=== PATIENT | female | born 1995 | race Caucasian/White ===

== ENCOUNTER 2019-10-13 14:42 | Emergency (ER) | payer OTHER ==
[2019-10-13 14:46] VITALS: BP 128/79; PULSE 106; TEMP 98
--- NOTE | 2019-10-13 15:29 | ED ---
ENT HPI - General Chief complaint: Dental/Oral Stated complaint: Abcess Time Seen by Provider: 10/13/19 14:59 Source: patient Mode of arrival: ambulatory Limitations: no limitations - History of Present Illness Initial comments: Patient is a 24-year-old female presenting to emergency Department with complaints of a dental abscess for the past week. Patient states she is having mild pain but is noticing increase in her swelling. Patient has not been to a dentist yet. Patient denies fever, chills, nausea, vomiting. She has no other complaints at this time. Patient denies . Upon arrival to ER, her vital signs are stable. - Related Data Previous Rx's Medication Instructions Recorded Penicillin V Potassium [Pen Vee K] 10 ml PO QID 7 Days #280 ml 10/13/19 Allergies Allergy/AdvReac Type Severity Reaction Status Date / Time No Known Allergies Allergy Verified 10/13/19 14:46 Review of Systems ROS Statement: Those systems with pertinent positive or pertinent negative responses have been documented in the HPI. ROS Other: All systems not noted in ROS Statement are negative. Past Medical History Past Medical History: No Reported History History of Any Multi-Drug Resistant Organisms: None Reported Past Surgical History: No Surgical Hx Reported Past Psychological History: Anxiety, Depression Smoking Status: Current every day smoker Past Alcohol Use History: None Reported Past Drug Use History: Marijuana General Exam - General Exam Comments Initial Comments: GENERAL: Well-appearing, well-nourished and in no acute distress. HEAD: Atraumatic, normocephalic. EYES: Pupils equal round and reactive to light, extraocular movements intact, sclera anicteric, conjunctiva are normal. ENT: TMs normal, nares patent, oropharynx clear without exudates. Moist mucous membranes. Patient has a broken tooth on the lower left side that has an associated abscess on the lower outter gum line. Abscess was drained with some blood in yellow fluid draining. Patient has very mild swelling of the lower left dry area. No overlying erythema or pain. NECK: Normal range of motion, supple without lymphadenopathy or JVD. LUNGS: Breath sounds clear to auscultation bilaterally and equal. No wheezes rales or rhonchi. HEART: Regular rate and rhythm without murmurs, rubs or gallops. ABDOMEN: Soft, nontender, normoactive bowel sounds. No guarding, no rebound. No masses appreciated. EXTREMITIES: Normal range of motion, no pitting or edema. No clubbing or cyanosis. NEUROLOGICAL: Normal speech, normal gait. PSYCH: Normal mood, normal affect. SKIN: Warm, Dry, normal turgor, no rashes or lesions noted. Limitations: no limitations Course Vital Signs 10/13/19 10/13/19 14:44 15:33 Temperature 98.0 F Pulse Rate 106 H Respiratory 18 20 Rate Blood Pressure 128/79 O2 Sat by Pulse 100 Oximetry Medical Decision Making - Medical Decision Making Patient is a 24-year-old female presenting with a dental abscess in the lower left side. Vital signs are stable. Abscess was drained with a 27-gauge needle. Blood and yellow fluid were draining. Patient will be started on antibiotics and will follow-up with dentist STIVEN. She can also do salt water gargles. She is in agreement with this plan of care. Return parameters were discussed with the patient she verbalized understanding. Disposition Clinical Impression: Dental abscess, Fracture of tooth Disposition: HOME SELF-CARE Condition: Stable Instructions (If sedation given, give patient instructions): Dental Abscess (ED) Additional Instructions: Please return to the Emergency Department if symptoms worsen or any other concerns. Take antibiotic as prescribed. Take Motrin for pain relief and swelling. Follow-up with dentist STIVEN. Prescriptions: Penicillin V Potassium [Pen Vee K] 10 ml PO QID 7 Days #280 ml Is patient prescribed a controlled substance at d/c from ED?: No Referrals: Suresh Cuadra DO [Primary Care Provider] - 1-2 days
[2019-10-13 15:35] VITALS: RESP 20
== END 2019-10-13 15:39 | disposition home or self-care (01) ==
LOC: EC 14:42
DX: K04.7 Periapical abscess without sinus (principal); S02.5XXA Fracture of tooth (traumatic), initial encounter for closed fracture; F17.200 Nicotine dependence, unspecified, uncomplicated; X58.XXXA Exposure to other specified factors, initial encounter
CPT/HCPCS: 41800; 99283

== ENCOUNTER 2025-04-14 06:00 | Inpatient (IN) | payer OTHER ==
[2025-04-14] MEDS ORDERED: LIDOCAINE 0.5% (PF) 5 MG/ML (50 ML SDV) SQ PRN (06:49)
[2025-04-14] MEDS ORDERED: METHYLERGONOVINE 0.2 MG/ML 1 ML AMP IM PRN (06:49)
[2025-04-14] MEDS ORDERED: OXYTOCIN 10 UNIT/ML 1 ML VIAL IM PRN (06:49)
[2025-04-14] MEDS ORDERED: TERBUTALINE 1 MG/ML VIAL SQ PRN (06:49)
[2025-04-14] MEDS ORDERED: TRANEXAMIC 1,000 MG/100ML-NACL 1,000 MG in EMPTY BAG 1 BAG IV PRN (06:49)
[2025-04-14] MEDS ORDERED: CARBOPROST TROMETHAMINE 250 MCG/ML 1 ML AMP IM PRN (06:49)
[2025-04-14] MEDS: LACTATED RINGERS 1,000 ML IV SCH (07:07)
[2025-04-14] MEDS: OXYTOCIN 30 UNITS/500 ML NS 30 UNIT in SALINE 1 500ML.BAG IV SCH (07:10)
[2025-04-14 07:42] LABS: Basophils # (A) 0.09 10*3/uL (0.00-0.10); Basophils % (A) 0.9 %; Eosinophils # (A) 0.21 10*3/uL (0.04-0.35); Eosinophils % (A) 2.0 %; HCT 32.9 % (37.2-46.3); HGB 10.9 g/dL (12.0-15.0); Lymphocytes # (A) 1.93 10*3/uL (0.90-5.00); Lymphocytes % (A) 18.8 %; MCH 27.7 pg (27.0-32.0); MCHC 33.1 g/dL (32.0-37.0); MCV 83.7 fL (80.0-97.0); Monocytes # (A) 0.62 10*3/uL (0.20-1.00); Monocytes % (A) 6.0 %; Neutrophils # (A) 7.38 10*3/uL (1.80-7.70); Neutrophils % (A) 71.9 %; Platelet Count 417 10*3/uL (140-440); RBC 3.93 10*6/uL (4.10-5.20); RDW 13.5 % (11.5-14.5); WBC 10.27 10*3/uL (4.50-10.00)
[2025-04-14 08:23] VITALS: RESP 16
--- NOTE | 2025-04-14 09:00 | P.HPOB ---
History of Present Illness H&P Date: 04/14/25 Chief Complaint: 39-0/7 weeks, elective induction The patient is a 29-year-old 3 para 2-0-0-2 admitted at 39-0/7 weeks as established by a 24-week ultrasound. She is admitted for elective induction of labor with all signs reassuring, category 1 heart rate tracing. Her has been uncomplicated though she is Rh- and received RhoGAM at 28 weeks. Group B strep status is negative. Obstetrical history: 3 para 2-0-0-2 with 2 term vaginal deliveries without complications. Current statistics are listed in history of present illness. EDC of 04/21/2025 was established by her 24-week ultrasound. Laboratory workup demonstrates a blood type B- with a negative antibody screen. Rubella status is immune. The remainder of the laboratory workup was within normal limits. 1 hour Glucola was normal and group B strep status is negative. She did have an initial positive chlamydia screen which was treated and cured. Gynecologic history: Unremarkable though she did have a history of chlamydia at the onset of which was treated and cured. Review of Systems Review of systems is confined to history of present illness. Past Medical History Past Medical History: No Reported History History of Any Multi-Drug Resistant Organisms: None Reported Past Surgical History: No Surgical Hx Reported Past Anesthesia/Blood Transfusion Reactions: No Reported Reaction Past Psychological History: Anxiety, Depression Smoking Status: Current every day smoker Past Alcohol Use History: None Reported Past Drug Use History: Marijuana Medications and Allergies Allergies Allergy/AdvReac Type Severity Reaction Status Date / Time codeine Allergy Rash/Hives Verified 04/14/25 06:47 Exam Vital Signs Resp Pulse Ox 04/14/25 08:20 16 100 Intake and Output 04/13/25 04/14/25 04/14/25 22:59 06:59 14:59 Other: Weight 63.503 kg 63.503 kg In general, this is a well-developed, well-nourished white female in no acute distress. Her heart has a regular rhythm and rate without murmur. Her lungs are clear to auscultation bilaterally in all suggs. Her abdomen is gravid, nondistended, has normal active bowel sounds, soft, nontender, and without any palpable masses aside from the uterine fundus. Her extremities are without any cyanosis, clubbing, or edema and are nontender to palpation bilaterally. Digital cervical examination demonstrates her cervix to be 3 cm dilated, 50 to 60% effaced, with the vertex and presentation at -2 station. Artificial rupture of membranes is carried out demonstrating clear fluid. Results Result Diagrams: 04/14/25 06:50 Abnormal Lab Results - Last 24 Hours (Table) 04/14/25 Range/Units 06:50 WBC 10.27 H (4.50-10.00) 10*3/uL RBC 3.93 L (4.10-5.20) 10*6/uL Hgb 10.9 L (12.0-15.0) g/dL Hct 32.9 L (37.2-46.3) % MPV 9.3 L (9.5-12.2) fL Assessment and Plan (1) Term Current Visit: Yes Status: Acute Code(s): Z34.90 - ENCNTR FOR SUPRVSN OF NORMAL , UNSP, UNSP TRIMESTER SNOMED Code(s): 95334090 Plan: The patient has been admitted and Pitocin augmentation started. She has undergone artificial rupture of membranes. She will have close maternal and surveillance and expectant management will be practiced. She is a good candidate for either IV or epidural analgesia, which ever she may choose.
[2025-04-14] MEDS: BUTORPHANOL 1 MG/ML 1 ML VIAL IV PRN (10:26)
[2025-04-14] MEDS ORDERED: diphenhydrAMINE 25 MG CAP PO PRN (11:40)
[2025-04-14] MEDS ORDERED: SIMETHICONE 80 MG CHEWABLE PO PRN (11:40)
[2025-04-14] MEDS ORDERED: HYDROCORTISONE 2.5% RECTAL CREAM 30 GM TUBE RECTAL PRN (11:40)
[2025-04-14] MEDS ORDERED: diphenhydrAMINE 50 MG/ML 1 ML VIAL IVP PRN ×2 (11:40)
[2025-04-14] MEDS ORDERED: LANOLIN CREAM 1 GM TUBE TOPICAL PRN (11:40)
[2025-04-14] MEDS ORDERED: ZOLPIDEM 5 MG TAB PO PRN (11:40)
[2025-04-14] MEDS ORDERED: BENZOCAINE/MENTHOL SPRAY 1 GM/SPRAY AEROSOL TOPICAL PRN (11:40)
--- NOTE | 2025-04-14 11:43 | P.PROBDLV ---
Vaginal Delivery Note - . Vaginal Delivery Note: The patient is a 29-year-old 3 para 2-0-0-2 admitted at 39-0/7 weeks by a 24-week ultrasound. She is admitted for elective induction with all signs reassuring, category 1 heart rate tracing. Her has been essentially uncomplicated aside from late presentation for care. She is Rh- and received RhoGAM at 28 weeks. Group B strep status is negative. On labor delivery, she had Pitocin augmentation started followed by artificial rupture of membranes for clear fluid. She made quick progress through the morning and especially through the active phase of labor to complete and then pushed over the course of 1 contraction to a normal spontaneous vaginal delivery of a viable 5 pound 14 ounce baby girl with Apgars of 9 at 1 minute and 9 at 5 minutes delivered in the right occiput anterior position. The placenta was delivered spontaneously, intact, and grossly normal with a grossly normal, centrally inserted three-vessel cord. There were no lacerations of the perineum, vagina, or cervix. Estimated blood loss for the case was ap proximately 100 mL. There were no complications. Both mother and infant are resting comfortably in recovery.
[2025-04-14] MEDS ORDERED: OXYTOCIN 30 UNITS/500 ML NS 30 UNIT in SALINE 1 500ML.BAG IV SCH (11:45)
[2025-04-14] MEDS: Rhogam IMMUNE GLOBULIN 1,500 UNIT/1 ML IM ONE (17:01)
[2025-04-14] MEDS: IBUPROFEN ORAL SUSP 100 MG/5 ML CUP PO PRN (20:20)
[2025-04-14] MEDS: IBUPROFEN 800 MG TAB PO SCH (20:21)
[2025-04-14] MEDS: ACETAMINOPHEN TAB 500 MG TAB PO SCH (20:22)
[2025-04-14] MEDS: SENNOSIDES-DOCUSATE SODIUM 1 EACH TAB PO SCH (20:22)
[2025-04-15 05:52] LABS: Basophils # (A) 0.09 10*3/uL (0.00-0.10); Basophils % (A) 0.8 %; Eosinophils # (A) 0.17 10*3/uL (0.04-0.35); Eosinophils % (A) 1.6 %; HCT 32.4 % (37.2-46.3); HGB 10.3 g/dL (12.0-15.0); Lymphocytes # (A) 2.36 10*3/uL (0.90-5.00); Lymphocytes % (A) 21.9 %; MCH 27.1 pg (27.0-32.0); MCHC 31.8 g/dL (32.0-37.0); MCV 85.3 fL (80.0-97.0); Monocytes # (A) 0.58 10*3/uL (0.20-1.00); Monocytes % (A) 5.4 %; Neutrophils # (A) 7.55 10*3/uL (1.80-7.70); Neutrophils % (A) 69.9 %; Platelet Count 353 10*3/uL (140-440); RBC 3.80 10*6/uL (4.10-5.20); RDW 13.7 % (11.5-14.5); WBC 10.79 10*3/uL (4.50-10.00)
[2025-04-15 08:10] VITALS: BP 119/75; PULSE 65; TEMP 98.3
--- NOTE | 2025-04-15 08:55 | P.DS ---
Providers Date of admission: 04/14/25 06:25 Expected date of discharge: 04/15/25 Attending physician: Nain Kimble Primary care physician: Stated None - Discharge Diagnosis(es) (1) Term Current Visit: Yes Status: Acute (2) Normal spontaneous vaginal delivery Current Visit: Yes Status: Acute Hospital Course: Is a 29-year-old 3 para 2-0-0-2 admitted at 39-0/7 weeks by a 24-week ultrasound. She is admitted for elective induction of labor with all signs reassuring, category 1 heart rate tracing. Her was uncomplicated. She is Rh- and received RhoGAM at 28 weeks. Group B strep status was negative. On labor and delivery, she had Pitocin started followed by artificial rupture of membranes. She made fairly quick progress through the latent and active phase of labor to complete and pushed quickly to a normal spontaneous vaginal delivery of a viable 5 pound 14 ounce baby girl with Apgars of 9 at 1 minute and 9 at 5 minutes. Her course was unremarkable with vital signs remaining stable and her temperature was afebrile throughout. She was deemed stable for discharge on day #1 and was discharged home to follow-up in the office in 6 weeks time routinely. Discharge instructions included calling for any significantly increased bleeding or foul-smelling lochia, significantly increased fever or abdominal pain, perineal complaints, breast complaints, or anything else that concerned her. She was additionally instructed to have nothing in the vagina for at least 6 weeks time to include intercourse. She understood her instructions and agrees to follow-up as noted above. Discharge medications included continued vitamins as she has opted to breast-feed. She was otherwise to use [id number] analgesic pain medications. Maternal blood type is B- and cord blood was sent for evaluation for the necessity of RhoGAM prior to discharge. Rubella status is immune. Procedures: #1. Pitocin induction #2. Artificial rupture of membranes #3. Normal spontaneous vaginal delivery Patient Condition at Discharge: Stable Plan - Discharge Summary Follow up Appointment(s)/Referral(s): Nain Kimble MD [STAFF PHYSICIAN] - 05/26/25 1:15 pm Discharge Disposition: HOME SELF-CARE
== END 2025-04-15 13:07 | disposition home or self-care (01) | DRG 560 ==
LOC: 4FBP 06:25
PROVIDERS: ADMIT Obstetrics & Gynecology; ATTEND Obstetrics & Gynecology
PROC: 10E0XZZ Delivery of Products of Conception, External Approach (ICD-10-PCS; principal; 2025-04-14)
PROC: 10907ZC Drainage of Amniotic Fluid, Therapeutic from Products of Conception, Via Natural or Artificial Opening (ICD-10-PCS; 2025-04-14)
PROC: 3E033VJ Introduction of Other Hormone into Peripheral Vein, Percutaneous Approach (ICD-10-PCS; 2025-04-14)
DX: O99.334 Smoking (tobacco) complicating childbirth (principal); Z37.0 Single live birth; F17.200 Nicotine dependence, unspecified, uncomplicated; O26.893 Other specified pregnancy related conditions, third trimester; Z3A.39 39 weeks gestation of pregnancy; Z67.21 Type B blood, Rh negative; Z86.19 Personal history of other infectious and parasitic diseases
CPT/HCPCS: 85025; 85461; 86850; 86900; 86901